=== PATIENT | male | born 1985 ===

== ENCOUNTER 2017-09-10 00:34 | Emergency (ER) | payer OTHER ==
[2017-09-10 00:57] VITALS: RESP 18
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
[2017-09-10 02:46] VITALS: TEMP 98.2; O2SAT 100
[2017-09-10 02:59] VITALS: BP 128/70; PULSE 63
--- NOTE | 2017-09-10 11:12 | CT ---
PROCEDURE: CT HEAD WITHOUT CONTRAST. HISTORY: Head injury. COMPARISON: None available. TECHNIQUE: Axial computed tomography images were obtained through the head/brain without intravenous contrast. Coronal and sagittal reconstructed images. Radiation dose: Total exam DLP = 1003.01 mGy-cm. This CT exam was performed using one or more of the following dose reduction techniques: Automated exposure control, adjustment of the mA and/or kV according to patient size, and/or use of iterative reconstruction technique. FINDINGS: HEMORRHAGE: No intracranial hemorrhage. BRAIN: No mass effect or edema. No atrophy or chronic microvascular ischemic changes. VENTRICLES: Unremarkable. No hydrocephalus. CALVARIUM: Craniotomy defect right parietal bone. PARANASAL SINUSES: Unremarkable as visualized. No significant inflammatory changes. MASTOID AIR CELLS: Unremarkable as visualized. No inflammatory changes. OTHER FINDINGS: None. IMPRESSION: No acute intracranial abnormalities. No significant findings to account for the clinical presentation. Unremarkable craniotomy site right parietal bone. Concordant results (preliminary interpretation) provided by [facility]. Procedure Completed: 01:36 Preliminary ([facility]Rad) Report: Dictated and Authenticated: 02:40 Final Interpretation: 11:10
== END 2017-09-10 02:54 | disposition home or self-care (01) ==
LOC: ED 00:34
DX: S09.90XA Unspecified injury of head, initial encounter (principal); Y08.89XA Assault by other specified means, initial encounter; Y92.9 Unspecified place or not applicable